=== PATIENT | male | born 1960 | race Caucasian/White ===

== ENCOUNTER → 2017-02-13 | Outpatient (CLI) | payer OTHER ==
[~2017-02-13] MED LIST: ASPIRIN 81MG TA81 MG PO; ATORVASTATIN CA80 MG PO; COREG 3.125M3.125 MG PO; EFFIENT10 M2 PO; GLYBURIDE2.5 M1 PO; ISOSORBIDE MONO30 MG PO; LOSARTAN POTASS25 MG PO; METFORMIN HCL1000 MG PO; NICODERM C21 MG/24 H TD; NICOTINE PATCH;21 MG TD; PHENERGAN12.5 M3 PO; PHENERGAN25 M3 PO; PLAVIX 75MG TAB75 MG PO; PROTONIX 40MG T40 MG PO
[2017-02-13 19:32] LABS: BUN 11 mg/dL (7-18)
[2017-02-13 19:35] LABS: GFR (ESTIMATED) 116 ML/MIN (>60)
== END ==
LOC: LAB 17:58
PROVIDERS: Emergency Medicine
DX: E11.9 Type 2 diabetes mellitus without complications (principal)